=== PATIENT | male | born 1950 | race Caucasian/White ===

== ENCOUNTER → 2018-10-31 | Outpatient (REF) | payer MEDICARE, MEDICAID ==
[2018-10-31 12:06] LABS: BLOOD UREA NITROGEN 17 MG/DL (7-18); CALCIUM LEVEL 9.2 MG/DL (8.8-10.2); CARBON DIOXIDE LEVEL 27 MEQ/L (21-32); CHLORIDE LEVEL 106 MEQ/L (98-107); CHOLESTEROL LEVEL 258 MG/DL (<200); CREATININE FOR GFR 1.08 MG/DL (0.70-1.30); GLOMERULAR FILTRATION RATE > 60.0 (>49); GLUCOSE, FASTING 93 MG/DL (70-100); HDL CHOLESTEROL 40 MG/DL (>40); LDL CHOLESTEROL 190 MG/DL (<100); NON-HDL-C 218 MG/DL; POTASSIUM SERUM 4.6 MEQ/L (3.5-5.1); SODIUM LEVEL 141 MEQ/L (136-145); TRIGLYCERIDES LEVEL 142 MG/DL (<150)
[2018-10-31 12:49] LABS: HEMOGLOBIN A1c 5.8 %
== END ==
LOC: M SFHCPLAZ 09:18
PROVIDERS: ATTEND Family Medicine
DX: E78.5 Hyperlipidemia, unspecified (principal); Z13.1 Encounter for screening for diabetes mellitus; M15.0 Primary generalized (osteo)arthritis; Z12.5 Encounter for screening for malignant neoplasm of prostate; Z12.11 Encounter for screening for malignant neoplasm of colon
CPT/HCPCS: 36415; 80048; 80061; 83036; G0103; G0463

== ENCOUNTER → 2019-03-22 | Outpatient (REF) | payer MEDICARE, MEDICAID ==
[2019-03-22 10:18] LABS: HEMOGLOBIN A1c 5.8 %
[2019-03-22 10:34] LABS: BLOOD UREA NITROGEN 14 MG/DL (7-18); CALCIUM LEVEL 9.3 MG/DL (8.8-10.2); CARBON DIOXIDE LEVEL 27 MEQ/L (21-32); CHLORIDE LEVEL 108 MEQ/L (98-107); CHOLESTEROL LEVEL 170 MG/DL (<200); CHOLESTEROL RISK RATIO 4.594 (<5); CREATININE FOR GFR 0.99 MG/DL (0.70-1.30); GLOMERULAR FILTRATION RATE > 60.0 (>49); GLUCOSE, FASTING 90 MG/DL (70-100); HDL CHOLESTEROL 37 MG/DL (>40); LDL CHOLESTEROL 103 MG/DL (<100); NON-HDL-C 133 MG/DL; POTASSIUM SERUM 4.4 MEQ/L (3.5-5.1); SODIUM LEVEL 141 MEQ/L (136-145); TRIGLYCERIDES LEVEL 148 MG/DL (<150)
== END ==
LOC: M SFHCPLAZ 08:14
PROVIDERS: ATTEND Family Medicine
DX: Z13.1 Encounter for screening for diabetes mellitus (principal); Z12.11 Encounter for screening for malignant neoplasm of colon; E78.5 Hyperlipidemia, unspecified

== ENCOUNTER → 2019-03-27 | Outpatient (CLI) | payer MEDICARE, MEDICAID ==
--- NOTE | 2019-03-27 10:20 | REP ---
ABDOMINAL AORTIC SONOGRAPHY: HISTORY: Screening for abdominal aortic aneurysm. FINDINGS: Retroperitoneal scanning shows a normal caliber aorta. This tapers from 2.7 x 2.1 cm AP x transverse dimension proximally to 1.1 x 1.5 cm distally. No aneurysm is seen. The right and left common iliac arteries are normal measuring 0.9 and 0.8 cm in AP dimension respectively. No periaortic disease is appreciated. IMPRESSION: Normal abdominal aortic sonography. No evidence of aneurysm seen. Electronically Signed by Kashif Gandhi MD 03/27/2019 11:13 A
== END ==
LOC: M RAD 07:20
PROVIDERS: ATTEND Family Medicine
DX: Z13.6 Encounter for screening for cardiovascular disorders (principal)

== ENCOUNTER → 2020-05-12 | Outpatient (REF) | payer MEDICARE ==
[2020-06-08 12:17] LABS: BASO # 0.1 10^3/uL (0.0-0.2); EOS # 0.4 10^3/uL (0.0-0.5); EOS % 4.2 % (0.0-3.0); HEMATOCRIT 48.9 % (42.0-52.0); HEMOGLOBIN 16.3 g/dl (13.5-17.5); LYMPH # 2.2 10^3/uL (1.5-5.0); LYMPH % 21.4 % (24.0-44.0); MEAN CORPUSCULAR HEMOGLOBIN 31.2 pg (27.0-33.0); MEAN CORPUSCULAR HGB CONC 33.3 g/dl (32.0-36.5); MEAN CORPUSCULAR VOLUME 93.5 fl (80.0-96.0); MONO % 9.8 % (0.0-5.0); NEUTROPHILS # 6.4 10^3/uL (1.5-8.5); NEUTROPHILS % 63.2 % (36.0-66.0); PLATELET COUNT, AUTOMATED 363 10^3/uL (150-450); RED BLOOD COUNT 5.23 10^6/uL (4.30-6.10); WHITE BLOOD COUNT 10.1 10^3/uL (4.0-10.0)
[2020-06-24 11:00] LABS: ALBUMIN 4.4 GM/DL (3.2-5.2); ALT/SGPT 34 U/L (12-78); BILIRUBIN,TOTAL 0.4 MG/DL (0.2-1.0); BLOOD UREA NITROGEN 10 MG/DL (7-18); CALCIUM LEVEL 9.9 MG/DL (8.8-10.2); CARBON DIOXIDE LEVEL 28 MEQ/L (21-32); CHLORIDE LEVEL 106 MEQ/L (98-107); CHOLESTEROL LEVEL 234 MG/DL (<200); FREE T4 0.96 NG/DL (0.76-1.46); GLOMERULAR FILTRATION RATE > 60.0 (>49); GLUCOSE, FASTING 97 MG/DL (70-100); HDL CHOLESTEROL 36 MG/DL (>40); LDL CHOLESTEROL 154 MG/DL (<100); NON-HDL-C 198 MG/DL; POTASSIUM SERUM 4.4 MEQ/L (3.5-5.1); SODIUM LEVEL 140 MEQ/L (136-145); TOTAL PROTEIN 7.8 GM/DL (6.4-8.2); TRIGLYCERIDES LEVEL 218 MG/DL (<150)
== END ==
LOC: M SFHCPLAZ 07:53
PROVIDERS: ATTEND Family Medicine
DX: E78.5 Hyperlipidemia, unspecified (principal); R73.01 Impaired fasting glucose; I10 Essential (primary) hypertension; F17.200 Nicotine dependence, unspecified, uncomplicated; Z12.5 Encounter for screening for malignant neoplasm of prostate
CPT/HCPCS: 36415; 80053; 80061; 83525; 84439; 84443; 85025; 86677; G0103; G0463

== ENCOUNTER → 2020-05-26 | Outpatient (REF) | payer MEDICARE, MEDICAID ==
[2020-07-06 15:16] LABS: ALBUMIN 4.78 GM/DL (3.29-5.55); ALBUMIN % 61.3 % (55.8-66.1); ALPHA-1-GLOBULIN % 3.6 % (2.9-4.9); ALPHA-1-GLOBULINS 0.28 GM/DL (0.17-0.41); ALPHA-2-GLOBULINS 0.84 GM/DL (0.42-0.99); ALPHA-2-GLOBULINS % 10.8 % (7.1-11.8); BETA-1-GLOBULINS 0.45 GM/DL (0.28-0.60); BETA-1-GLOBULINS % 5.8 % (4.7-7.2); BETA-2-GLOBULINS 0.46 GM/DL (0.19-0.55); BETA-2-GLOBULINS % 5.9 % (3.2-6.5); GAMMA GLOBULIN % 12.6 % (11.1-18.8); GAMMA GLOBULINS 0.98 GM/DL (0.65-1.58)
[2020-07-07 07:56] LABS: TOTAL PROTEIN 7.8 GM/DL (6.4-8.2)
[2020-07-14 11:07] LABS: BASO # 0.1 10^3/uL (0.0-0.2); BASO % 1.8 % (0.0-1.0); EOS # 0.5 10^3/uL (0.0-0.5); EOS % 5.7 % (0.0-3.0); HEMATOCRIT 47.8 % (42.0-52.0); HEMOGLOBIN 16.1 g/dl (13.5-17.5); LYMPH # 2.3 10^3/uL (1.5-5.0); LYMPH % 28.3 % (24.0-44.0); MEAN CORPUSCULAR HGB CONC 33.7 g/dl (32.0-36.5); MEAN CORPUSCULAR VOLUME 92.1 fl (80.0-96.0); MONO # 0.8 10^3/uL (0.0-0.8); MONO % 10.1 % (0.0-5.0); NEUTROPHILS # 4.3 10^3/uL (1.5-8.5); NEUTROPHILS % 53.7 % (36.0-66.0); PLATELET COUNT, AUTOMATED 350 10^3/uL (150-450); RED BLOOD COUNT 5.19 10^6/uL (4.30-6.10)
[2020-08-04 12:52] LABS: THYROGLOBULIN ANTIBODY 23.9 U/ML (<60.0)
[2020-08-04 12:56] LABS: BLOOD UREA NITROGEN 15 MG/DL (7-18); FREE T4 0.88 NG/DL (0.76-1.46); GLUCOSE, FASTING 96 MG/DL (70-100)
[2020-08-04 12:57] LABS: ALBUMIN 4.1 GM/DL (3.2-5.2); CALCIUM LEVEL 9.8 MG/DL (8.8-10.2); CARBON DIOXIDE LEVEL 30 mmol/L (20-29); CHLORIDE LEVEL 108 MEQ/L (98-107); CREATININE FOR GFR 1.17 MG/DL (0.70-1.30); GLOMERULAR FILTRATION RATE > 60.0 (>49); PHOSPHORUS LEVEL 4.1 MG/DL (2.5-4.9); POTASSIUM SERUM 5.2 MEQ/L (3.5-5.1); SODIUM LEVEL 139 MEQ/L (136-145)
[2020-08-04 12:58] LABS: C REACTIVE PROTEIN QUANTITATIV < 0.30 MG/DL (0.00-0.30); FERRITIN 426 NG/ML (26-388); TOTAL 25(OH) VITAMIN D 34.9 NG/ML (30.0-100.0)
[2020-08-04 13:01] LABS: PTH INTACT 71.8 PG/ML (18.5-88.0)
[2020-08-04 13:02] LABS: HEMOGLOBIN A1c 5.5 %
== END ==
LOC: M SFHCPLAZ 11:54
PROVIDERS: ATTEND Family Medicine
DX: E03.9 Hypothyroidism, unspecified (principal); R73.01 Impaired fasting glucose; Z79.899 Other long term (current) drug therapy

== ENCOUNTER → 2020-06-03 | Outpatient (CLI) | payer MEDICAID, MEDICARE ==
--- NOTE | 2020-06-10 18:39 | REP ---
URINARY TRACT SONOGRAPHY HISTORY: Chronic kidney disease stage III. FINDINGS: Scanning at the level of the urinary bladder shows no abnormality. Visualized bladder beauchamp are smooth. Renal cortical echogenicity pattern is normal and contours are smooth bilaterally. There is no evidence of hydronephrosis on either side. No cyst or mass is seen. No calculus is identified. The right kidney measures 10.6 x 5.8 x 5.7 cm. The left renal dimensions are 11.2 x 4.7 x 4.8 cm. IMPRESSION: Morphologically normal urinary tract sonography. [facility]
== END ==
LOC: M RAD 13:51
PROVIDERS: ATTEND Family Medicine
DX: N18.3 Chronic kidney disease, stage 3 (moderate) (principal)

== ENCOUNTER → 2020-06-16 | Outpatient (REF) | payer MEDICARE, MEDICAID ==
[2020-06-16 13:52] LABS: ALT/SGPT 39 U/L (12-78); BILIRUBIN,DIRECT 0.1 MG/DL (0.0-0.2); BILIRUBIN,TOTAL 0.6 MG/DL (0.2-1.0); BLOOD UREA NITROGEN 18 MG/DL (7-18); CALCIUM LEVEL 9.5 MG/DL (8.8-10.2); CARBON DIOXIDE LEVEL 27 MEQ/L (21-32); CHLORIDE LEVEL 107 MEQ/L (98-107); CPK CREATINE PHOSPHOKINASE 55 U/L (39-308); CREATININE FOR GFR 1.15 MG/DL (0.70-1.30); FREE T4 0.96 NG/DL (0.76-1.46); GLOMERULAR FILTRATION RATE > 60.0 (>49); GLUCOSE, FASTING 104 MG/DL (70-100); PHOSPHORUS LEVEL 3.4 MG/DL (2.5-4.9); POTASSIUM SERUM 4.5 MEQ/L (3.5-5.1); SODIUM LEVEL 139 MEQ/L (136-145); TOTAL PROTEIN 7.5 GM/DL (6.4-8.2)
== END ==
LOC: M PLALAB 11:51
PROVIDERS: ATTEND Family Medicine
DX: R73.01 Impaired fasting glucose (principal); E78.5 Hyperlipidemia, unspecified; E03.9 Hypothyroidism, unspecified

== ENCOUNTER → 2020-06-17 | Outpatient (CLI) | payer MEDICAID, MEDICARE, OTHER ==
--- NOTE | 2020-07-07 14:08 | REP ---
LEFT SHOULDER RADIOGRAPH SERIES CLINICAL: Left shoulder pain, impingement. TECHNIQUE: Internal rotation, external rotation, and Y view of the left shoulder. FINDINGS: Acromioclavicular and glenohumeral joints are intact and normal. No arthritic changes are appreciated. The subacromial space measures approximately 8.8 mm. No periarticular calcifications or loose bodies are identified. IMPRESSION: Subacromial space measuring 8.8 mm. Otherwise, normal left shoulder radiographs. [facility]
== END ==
LOC: M RAD 14:23
PROVIDERS: ATTEND Family Medicine
DX: M75.42 Impingement syndrome of left shoulder (principal)

== ENCOUNTER → 2020-09-16 | Outpatient (REF) | payer MEDICARE, MEDICAID ==
[2020-09-16 13:46] LABS: BASO # 0.1 10^3/uL (0.0-0.2); BASO % 1.6 % (0.0-1.0); EOS # 0.4 10^3/uL (0.0-0.5); EOS % 6.3 % (0.0-3.0); HEMATOCRIT 45.4 % (42.0-52.0); HEMOGLOBIN 15.2 g/dl (13.5-17.5); LYMPH % 29.6 % (24.0-44.0); MEAN CORPUSCULAR HEMOGLOBIN 30.8 pg (27.0-33.0); MEAN CORPUSCULAR HGB CONC 33.5 g/dl (32.0-36.5); MEAN CORPUSCULAR VOLUME 92.1 fl (80.0-96.0); MONO # 0.8 10^3/uL (0.0-0.8); NEUTROPHILS # 3.4 10^3/uL (1.5-8.5); NEUTROPHILS % 50.1 % (36.0-66.0); PLATELET COUNT, AUTOMATED 293 10^3/uL (150-450); RED BLOOD COUNT 4.93 10^6/uL (4.30-6.10); WHITE BLOOD COUNT 6.9 10^3/uL (4.0-10.0)
[2020-09-16 14:17] LABS: ALBUMIN 3.9 GM/DL (3.2-5.2); BILIRUBIN,TOTAL 0.7 MG/DL (0.2-1.0); C REACTIVE PROTEIN QUANTITATIV 0.55 MG/DL (0.00-0.30); CALCIUM LEVEL 9.3 MG/DL (8.8-10.2); CHOLESTEROL RISK RATIO 4.972 (<5); CREATININE FOR GFR 1.3 MG/DL (0.70-1.30); FREE T4 1.18 NG/DL (0.76-1.46); GLOMERULAR FILTRATION RATE 58.4 (>49); POTASSIUM SERUM 4.4 MEQ/L (3.5-5.1); THYROID STIMULATING HORMONE 3.34 uIU/ML (0.358-3.740); TOTAL PROTEIN 6.9 GM/DL (6.4-8.2)
[2020-09-17 12:08] LABS: H PYLORI SERUM QUANT IgG ABY 0.3 (0.00-0.79); INSULIN LEVEL 13.5 uIU/mL (2.6-24.9)
== END ==
LOC: M SFHCPLAZ 08:29
PROVIDERS: ATTEND Family Medicine
DX: E03.9 Hypothyroidism, unspecified (principal); R73.01 Impaired fasting glucose; E78.2 Mixed hyperlipidemia; M47.812 Spondylosis without myelopathy or radiculopathy, cervical region; N18.31 Chronic kidney disease, stage 3a

== ENCOUNTER → 2021-02-12 | Outpatient (REF) | payer OTHER, MEDICAID ==
[2021-02-12 11:12] LABS: APPEARANCE, URINE CLEAR (CLEAR); BACTERIA, URINE AUTO NEGATIVE (NEGATIVE); BILIRUBIN, URINE AUTO NEGATIVE (NEGATIVE); BLOOD, URINE BLOOD NEGATIVE (NEGATIVE); COLOR, URINE YELLOW (YELLOW); GLUCOSE, URINE (UA) AUTO NEGATIVE (NEGATIVE); KETONE, URINE AUTO NEGATIVE (NEGATIVE); LEUKOCYTE ESTERASE, URINE AUTO NEGATIVE (NEGATIVE); MUCUS, URINE LARGE (NEGATIVE); NITRITE, URINE AUTO NEGATIVE (NEGATIVE); PROTEIN, URINE AUTO NEGATIVE (NEGATIVE); RBC, URINE AUTO 0 /HPF (0-3); SPECIFIC GRAVITY URINE AUTO 1.025 (1.002-1.035); SQUAMOUS EPITHELIAL CELL UR AU 0 /HPF (0-6); UROBILINOGEN, URINE AUTO 0.2 mg/dL (0.0-2.0); WBC, URINE AUTO 1 /HPF (0-3)
[2021-02-12 11:52] LABS: MALB URINE SIEMENS 15.1 MG/L; MAU/CREAT RATIO 5.5 MCG/MG (0.0-30.0)
[2021-02-12 12:03] LABS: ALBUMIN 3.9 GM/DL (3.2-5.2); BLOOD UREA NITROGEN 14 MG/DL (7-18); CALCIUM LEVEL 9.4 MG/DL (8.8-10.2); CARBON DIOXIDE LEVEL 28 MEQ/L (21-32); CHLORIDE LEVEL 108 MEQ/L (98-107); CREATININE FOR GFR 1.23 MG/DL (0.70-1.30); FREE T4 1.05 NG/DL (0.76-1.46); GLOMERULAR FILTRATION RATE > 60.0 (>49); GLUCOSE, FASTING 101 MG/DL (70-100); PHOSPHORUS LEVEL 3.1 MG/DL (2.5-4.9); POTASSIUM SERUM 3.9 MEQ/L (3.5-5.1); PTH INTACT 57.5 PG/ML (18.5-88.0); SODIUM LEVEL 140 MEQ/L (136-145); TOTAL 25(OH) VITAMIN D 33.5 NG/ML (30.0-100.0)
[2021-02-12 12:37] LABS: HEMOGLOBIN A1c 5.4 %
== END ==
LOC: M SFHCPLAZ 09:06
PROVIDERS: ATTEND Family Medicine
DX: E55.9 Vitamin D deficiency, unspecified (principal); R73.01 Impaired fasting glucose; N18.31 Chronic kidney disease, stage 3a; E03.9 Hypothyroidism, unspecified; Z12.5 Encounter for screening for malignant neoplasm of prostate
CPT/HCPCS: 36415; 80069; 81001; 82043; 82306; 83036; 83525; 83970; 84439; 84443; G0103; G0463

== ENCOUNTER → 2021-03-15 | Outpatient (CLI) | payer MEDICAID, OTHER ==
[~2021-03-15] MED LIST: ISOVUE-370 76% 100ML VIAL As Ordered ONE
--- NOTE | 2021-03-19 01:48 | REP ---
INDICATION: LUNG NODULE COMPARISON: 09/21/2020, 05/27/2020 TECHNIQUE: Axial contrast enhanced images from the thoracic inlet to the upper abdomen with coronal and sagittal reformations using 75 ml Isovue 370 intravenous contrast material. This CT examination was performed using the following dose reduction techniques: Automated exposure control, adjustment of mA and/or kv according to the patient's size, and use of iterative reconstruction technique. FINDINGS: Lung parker demonstrate mild chronic COPD and interstitial changes. Few nodules primarily at the lingula and left lower lobe remains stable and measure up to roughly 7 mm. No new significant nodule or mass. No acute consolidation. No effusion. No pneumothorax. Mediastinum demonstrates normal/stable vasculature and heart/pericardium. No significant adenopathy noted. Tracheobronchial tree is patent. Thyroid gland is normal by CT evaluation. Surrounding musculoskeletal structures intact and without acute osseous abnormality. IMPRESSION: 1. Chronic stable noncalcified nodules in the left lower lung zone which likely represent sequelae of prior granulomatous disease. Stability revises Lung-RADS to category 2, and annual low-dose CT surveillance may be warranted. 2. No new acute mediastinal or pleuroparenchymal process appreciated. <Electronically signed by Marvel Christiansen > 03/19/21 [id number]
== END ==
LOC: M RAD 13:29
PROVIDERS: ATTEND Family Medicine
DX: R91.8 Other nonspecific abnormal finding of lung field (principal); J44.9 Chronic obstructive pulmonary disease, unspecified; J84.9 Interstitial pulmonary disease, unspecified
CPT/HCPCS: 71260; Q9967

== ENCOUNTER → 2021-06-29 | Outpatient (CLI) | payer OTHER, MEDICAID ==
--- NOTE | 2021-06-29 14:05 | REP ---
INDICATION: SPONDYLOSIS W/O MYELOPATHY OR RADICULOPATHY, CERVICAL REGION. COMPARISON: None. TECHNIQUE: Eight views of the cervical spine are obtained including flexion extension lateral radiographs. FINDINGS: Cervical vertebral body heights are preserved alignment is normal. Flexion extension view show normal alignment. No subluxation or instability is seen. There is discogenic spurring anteriorly with disc space narrowing at C4-5 and to a lesser extent at C5-6. There is mild spurring at C6-7. Swimmer's lateral view shows no additional abnormality. AP view demonstrates osteoarthritic facet hypertrophy mild in degree in the mid cervical spine most pronounced on the left at C3-4. There is mild vascular calcification in the distribution of the left carotid artery bifurcation. Oblique radiographs demonstrate normally aligned facets an intact neural foramina on the right. On the left there is minimal uncovertebral spurring at C4-5 and C6-7. Facets are normally aligned. Open mouth odontoid view is unremarkable. The patient is edentulous. IMPRESSION: Degenerative spondylosis changes as noted above. <Electronically signed by Noman Gandhi > 06/29/21 [id number]
== END ==
LOC: M PLAIMG 13:31
PROVIDERS: ATTEND Nurse Practitioner Family
DX: M47.812 Spondylosis without myelopathy or radiculopathy, cervical region (principal)
CPT/HCPCS: 72052; G0463

== ENCOUNTER → 2021-08-19 | Outpatient (CLI) | payer MEDICAID, OTHER ==
--- NOTE | 2021-08-19 14:51 | REP ---
INDICATION: SPONDYLOSIS W/O MYELOPATHY OR RADICULOPATHY, THORACIC REGION. COMPARISON: None. TECHNIQUE: AP and lateral FINDINGS: Mild to moderate midthoracic marginal osteophytosis is seen. There is anterior lipping and anterior disc space narrowing at every level. Vertebral body height and alignment is within normal limits. The pedicles are intact bilaterally. IMPRESSION: Chronic changes as described above. <Electronically signed by Mark Jackson > 08/19/21 [id number]
[2021-08-19 17:22] LABS: BASO # 0.1 10^3/uL (0.0-0.2); BASO % 1.3 % (0.0-1.0); EOS # 0.2 10^3/uL (0.0-0.5); EOS % 2.7 % (0.0-3.0); HEMATOCRIT 44.9 % (42.0-52.0); LYMPH # 2.2 10^3/uL (1.5-5.0); MEAN CORPUSCULAR HEMOGLOBIN 30.7 pg (27.0-33.0); MEAN CORPUSCULAR HGB CONC 33.4 g/dl (32.0-36.5); MEAN CORPUSCULAR VOLUME 91.8 fl (80.0-96.0); MONO # 0.8 10^3/uL (0.0-0.8); MONO % 10.9 % (2.0-8.0); NEUTROPHILS # 4.3 10^3/uL (1.5-8.5); NEUTROPHILS % 55.8 % (36.0-66.0); PLATELET COUNT, AUTOMATED 345 10^3/uL (150-450); RED BLOOD COUNT 4.89 10^6/uL (4.30-6.10); WHITE BLOOD COUNT 7.7 10^3/uL (4.0-10.0)
[2021-08-19 17:43] LABS: ALBUMIN 3.7 GM/DL (3.2-5.2); ALT/SGPT 24 U/L (12-78); BILIRUBIN,TOTAL 0.5 MG/DL (0.2-1.0); BLOOD UREA NITROGEN 12 MG/DL (7-18); CALCIUM LEVEL 9.4 MG/DL (8.8-10.2); CARBON DIOXIDE LEVEL 25 MEQ/L (21-32); CHLORIDE LEVEL 106 MEQ/L (98-107); CREATININE FOR GFR 1.13 MG/DL (0.70-1.30); FERRITIN 307 NG/ML (26-388); FREE T4 0.96 NG/DL (0.76-1.46); GLOMERULAR FILTRATION RATE > 60.0 (>49); GLUCOSE, FASTING 94 MG/DL (70-100); MAGNESIUM LEVEL 2.1 MG/DL (1.8-2.4); NT-PRO BNP 65 PG/ML (<125); POTASSIUM SERUM 4.6 MEQ/L (3.5-5.1); SODIUM LEVEL 139 MEQ/L (136-145); TOTAL PROTEIN 7.2 GM/DL (6.4-8.2)
[2021-08-19 19:44] LABS: HEMOGLOBIN A1c 5.5 %
== END ==
LOC: M PLAIMG 12:20
PROVIDERS: ATTEND Family Medicine
DX: M47.814 Spondylosis without myelopathy or radiculopathy, thoracic region (principal); R73.01 Impaired fasting glucose; I10 Essential (primary) hypertension; E03.9 Hypothyroidism, unspecified
CPT/HCPCS: 36415; 72072; 80053; 82728; 83036; 83735; 83880; 84439; 84443; 85025; G0463

== ENCOUNTER → 2022-03-15 | Outpatient (CLI) | payer OTHER, MEDICAID ==
[2022-03-15 14:03] LABS: ALBUMIN 3.9 GM/DL (3.2-5.2); ALT/SGPT 31 U/L (12-78); BILIRUBIN,TOTAL 0.5 MG/DL (0.2-1.0); BLOOD UREA NITROGEN 11 MG/DL (7-18); CARBON DIOXIDE LEVEL 26 MEQ/L (21-32); CHLORIDE LEVEL 109 MEQ/L (98-107); CHOLESTEROL LEVEL 189 MG/DL (<200); CREATININE FOR GFR 1.41 MG/DL (0.70-1.30); FREE T4 0.82 NG/DL (0.76-1.46); GLOMERULAR FILTRATION RATE 53.1 (>49); GLUCOSE, FASTING 88 MG/DL (70-100); HDL CHOLESTEROL 42 MG/DL (>40); LDL CHOLESTEROL 116 MG/DL (<100); NON-HDL-C 147 MG/DL; POTASSIUM SERUM 4.3 MEQ/L (3.5-5.1); SODIUM LEVEL 140 MEQ/L (136-145); TRIGLYCERIDES LEVEL 153 MG/DL (<150)
[2022-03-15 14:11] LABS: HEMOGLOBIN A1c 5.4 %
[2022-03-17 17:07] LABS: APOLIPOPROTEIN A-1 142 mg/dL (101-178); APOLIPOPROTEIN B 126 mg/dL (<90); APOLIPOPROTEIN B/A-1 RATIO 0.9 ratio (0.0-0.7); H PYLORI SERUM QUANT IgG ABY 0.12 (0.00-0.79)
== END ==
LOC: M PLALAB 10:05
PROVIDERS: ATTEND Family Medicine
DX: E78.2 Mixed hyperlipidemia (principal); M47.814 Spondylosis without myelopathy or radiculopathy, thoracic region; Z12.5 Encounter for screening for malignant neoplasm of prostate; Z79.899 Other long term (current) drug therapy

== ENCOUNTER → 2022-04-01 | Outpatient (CLI) | payer MEDICAID, OTHER ==
[~2022-04-01] MED LIST changes: -ISOVUE-370 76% 100ML VIAL As Ordered ONE; +ISOVUE-370 76% 100ML VIAL ONE
== END ==
LOC: M PLAIMG 08:41
PROVIDERS: ATTEND Family Medicine
DX: R91.8 Other nonspecific abnormal finding of lung field (principal)
CPT/HCPCS: 71260; Q9967

== ENCOUNTER → 2022-08-16 | Outpatient (CLI) | payer MEDICAID, OTHER ==
[2022-08-16 14:36] LABS: ALBUMIN 3.9 GM/DL (3.2-5.2); BILIRUBIN,TOTAL 0.9 MG/DL (0.2-1.0); CHOLESTEROL RISK RATIO 4.809 (<5); CREATININE FOR GFR 1.38 MG/DL (0.70-1.30); FREE T4 0.85 NG/DL (0.76-1.46); GLOMERULAR FILTRATION RATE 54.2 (>42); MAGNESIUM LEVEL 2.1 MG/DL (1.8-2.4); POTASSIUM SERUM 4.7 MEQ/L (3.5-5.1); THYROID STIMULATING HORMONE 2.3 uIU/ML (0.358-3.740); TOTAL PROTEIN 7.2 GM/DL (6.4-8.2)
[2022-08-16 20:05] LABS: HEMOGLOBIN A1c 5.4 %
== END ==
LOC: M PLALAB 10:37
PROVIDERS: ATTEND Family Medicine
DX: R73.01 Impaired fasting glucose (principal); E78.2 Mixed hyperlipidemia; E03.9 Hypothyroidism, unspecified; I10 Essential (primary) hypertension

== ENCOUNTER → 2023-05-18 | Outpatient (REF) | payer OTHER | LOC: M SFHCPLAZ 11:07 | PROVIDERS: ATTEND Family Medicine | DX: R73.01 Impaired fasting glucose (principal); I10 Essential (primary) hypertension; E03.9 Hypothyroidism, unspecified; Z12.5 Encounter for screening for malignant neoplasm of prostate ==

== ENCOUNTER → 2023-05-18 | Outpatient (CLI) | payer OTHER ==
[2023-05-18 14:02] LABS: BASO # 0.1 10^3/uL (0.0-0.2); BASO % 1.2 % (0.0-1.0); EOS # 0.3 10^3/uL (0.0-0.5); EOS % 3.4 % (0.0-3.0); HEMATOCRIT 45.5 % (42.0-52.0); HEMOGLOBIN 15.3 g/dl (13.5-17.5); LYMPH # 2.4 10^3/uL (1.5-5.0); LYMPH % 32.1 % (24.0-44.0); MEAN CORPUSCULAR HEMOGLOBIN 30.4 pg (27.0-33.0); MEAN CORPUSCULAR HGB CONC 33.6 g/dl (32.0-36.5); MEAN CORPUSCULAR VOLUME 90.5 fl (80.0-96.0); MONO % 12.7 % (2.0-8.0); NEUTROPHILS # 3.8 10^3/uL (1.5-8.5); NEUTROPHILS % 50.3 % (36.0-66.0); PLATELET COUNT, AUTOMATED 324 10^3/uL (150-450); RED BLOOD COUNT 5.03 10^6/uL (4.30-6.10); WHITE BLOOD COUNT 7.6 10^3/uL (4.0-10.0)
[2023-05-18 14:15] LABS: HEMOGLOBIN A1c 5.7 % (4.0-6.0)
[2023-05-18 14:36] LABS: ALKALINE PHOSPHATASE 130 U/L (46-116); ALT/SGPT 15 U/L (7.0-40); AST/SGOT 10 U/L (<34); BILIRUBIN,TOTAL 0.7 MG/DL (0.3-1.2); BLOOD UREA NITROGEN 12 MG/DL (9-23); CALCIUM LEVEL 9.6 MG/DL (8.3-10.6); CARBON DIOXIDE LEVEL 27 MMOL/L (20-31); CHLORIDE LEVEL 105 MMOL/L (98-107); CHOLESTEROL LEVEL 166 MG/DL (<200); CHOLESTEROL RISK RATIO 4.79 (<5); CREATININE FOR GFR 1.09 MG/DL (0.70-1.30); GLOMERULAR FILTRATION RATE > 60.0 (>42); GLUCOSE, FASTING 92 MG/DL (74-106); HDL CHOLESTEROL 34.6 MG/DL (>40); LDL CHOLESTEROL 99.6 MG/DL (<100); NON-HDL-C 131.4 MG/DL; POTASSIUM SERUM 4.1 MMOL/L (3.5-5.1); SODIUM LEVEL 139 MMOL/L (136-145); TOTAL PROTEIN 6.9 G/DL (5.7-8.2); TRIGLYCERIDES LEVEL 159 MG/DL (<150)
[2023-05-18 14:37] LABS: FREE T4 0.88 NG/DL (0.89-1.76); THYROID STIMULATING HORMONE 5.389 uIU/ML (0.55-4.78)
== END ==
LOC: M PLALAB 11:23
PROVIDERS: ATTEND Family Medicine
DX: R73.01 Impaired fasting glucose (principal); I10 Essential (primary) hypertension; E03.9 Hypothyroidism, unspecified; Z12.5 Encounter for screening for malignant neoplasm of prostate

== ENCOUNTER → 2023-06-19 | Outpatient (CLI) | payer OTHER ==
[~2023-06-19] MED LIST changes: +ISOVUE-370 76% 100ML VIAL As Ordered ONE; -ISOVUE-370 76% 100ML VIAL ONE
== END ==
LOC: M RAD 14:06
PROVIDERS: ATTEND Family Medicine
DX: R91.8 Other nonspecific abnormal finding of lung field (principal); J43.2 Centrilobular emphysema
CPT/HCPCS: 71260; Q9967

== ENCOUNTER → 2023-12-12 | Outpatient (CLI) | payer OTHER ==
[2023-12-12 15:04] LABS: FREE T4 1.04 NG/DL (0.89-1.76)
[2023-12-12 15:05] LABS: THYROID STIMULATING HORMONE 7.373 uIU/ML (0.55-4.78)
[2023-12-12 15:07] LABS: ALBUMIN 3.9 G/DL (3.2-5.2); ALKALINE PHOSPHATASE 115 U/L (46-116); ALT/SGPT 20 U/L (7.0-40); AST/SGOT 16 U/L (<34); BILIRUBIN,TOTAL 0.5 MG/DL (0.3-1.2); BLOOD UREA NITROGEN 15 MG/DL (9-23); CALCIUM LEVEL 8.7 MG/DL (8.3-10.6); CARBON DIOXIDE LEVEL 27 MMOL/L (20-31); CHLORIDE LEVEL 107 MMOL/L (98-107); GLOMERULAR FILTRATION RATE > 60.0 (>42); GLUCOSE, FASTING 95 MG/DL (74-106); POTASSIUM SERUM 4.6 MMOL/L (3.5-5.1); SODIUM LEVEL 138 MMOL/L (136-145); TOTAL PROTEIN 6.8 G/DL (5.7-8.2)
== END ==
LOC: M PLALAB 10:00
PROVIDERS: ATTEND Family Medicine
DX: E55.9 Vitamin D deficiency, unspecified (principal); R73.01 Impaired fasting glucose; E03.9 Hypothyroidism, unspecified

== ENCOUNTER → 2023-12-12 | Outpatient (REF) | payer OTHER | LOC: M SFHCPLAZ 15:47 | PROVIDERS: ATTEND Family Medicine | DX: E03.9 Hypothyroidism, unspecified (principal); R73.01 Impaired fasting glucose; E55.9 Vitamin D deficiency, unspecified ==

== ENCOUNTER → 2024-07-25 | Outpatient (CLI) | payer OTHER | LOC: M PLALAB 07-24 15:02 | DX: Z11.1 Encounter for screening for respiratory tuberculosis (principal) ==

== ENCOUNTER → 2024-08-12 | Outpatient (CLI) | payer OTHER ==
[2024-08-12 14:45] LABS: ALBUMIN 3.9 G/DL (3.2-5.2); ALKALINE PHOSPHATASE 128 U/L (40-129); ALT/SGPT 19 U/L (7.0-40); AST/SGOT < 8 U/L (<34); BILIRUBIN,TOTAL 0.5 MG/DL (0.3-1.2); BLOOD UREA NITROGEN 14 MG/DL (9-23); CALCIUM LEVEL 10.2 MG/DL (8.3-10.6); CARBON DIOXIDE LEVEL 28 MMOL/L (20-31); CHLORIDE LEVEL 107 MMOL/L (98-107); CREATININE FOR GFR 1.03 MG/DL (0.70-1.30); GLOMERULAR FILTRATION RATE > 60.0 (>42); GLUCOSE, FASTING 79 MG/DL (74-106); POTASSIUM SERUM 4.4 MMOL/L (3.5-5.1); PTH INTACT 49.2 PG/ML (18.5-88.0); SODIUM LEVEL 141 MMOL/L (136-145); TOTAL PROTEIN 7.1 G/DL (5.7-8.2)
[2024-08-12 14:49] LABS: FREE T4 1.06 NG/DL (0.89-1.76); THYROID STIMULATING HORMONE 4.003 uIU/ML (0.55-4.78)
[2024-08-12 14:50] LABS: TOTAL 25(OH) VITAMIN D 16.2 NG/ML (20.0-100.0)
== END ==
LOC: M PLALAB 11:43
PROVIDERS: ATTEND Family Medicine
DX: R73.01 Impaired fasting glucose (principal); E03.9 Hypothyroidism, unspecified; E55.9 Vitamin D deficiency, unspecified

== ENCOUNTER → 2024-12-11 | Outpatient (CLI) | payer OTHER | LOC: M WUC 12:59 | PROVIDERS: ATTEND Physician Assistant | DX: R05.9 Cough, unspecified (principal); R06.2 Wheezing; R91.8 Other nonspecific abnormal finding of lung field ==

== ENCOUNTER → 2025-01-31 | Outpatient (CLI) | payer OTHER ==
[2025-01-31 14:59] LABS: BASO # 0.1 10^3/uL (0.0-0.2); BASO % 1.3 % (0.0-1.0); EOS # 0.4 10^3/uL (0.0-0.5); EOS % 5.1 % (0.0-3.0); HEMATOCRIT 43.5 % (42.0-52.0); HEMOGLOBIN 14.8 g/dl (13.5-17.5); LYMPH # 2.6 10^3/uL (1.5-5.0); LYMPH % 29.9 % (24.0-44.0); MEAN CORPUSCULAR HEMOGLOBIN 31.7 pg (27.0-33.0); MEAN CORPUSCULAR VOLUME 93.1 fl (80.0-96.0); MONO # 1.1 10^3/uL (0.0-0.8); MONO % 12.7 % (2.0-8.0); NEUTROPHILS # 4.4 10^3/uL (1.5-8.5); NEUTROPHILS % 50.8 % (36.0-66.0); PLATELET COUNT, AUTOMATED 322 10^3/uL (150-450); RED BLOOD COUNT 4.67 10^6/uL (4.30-6.10); WHITE BLOOD COUNT 8.7 10^3/uL (4.0-10.0)
[2025-01-31 15:12] LABS: PSA SCREENING 2.52 NG/ML (< 4.00)
[2025-01-31 15:15] LABS: FERRITIN 601.4 NG/ML (10.5-307.3)
[2025-01-31 15:16] LABS: ALBUMIN 3.8 G/DL (3.2-5.2); BILIRUBIN,TOTAL 0.7 MG/DL (0.3-1.2); CALCIUM LEVEL 9.5 MG/DL (8.3-10.6); CHOLESTEROL RISK RATIO 5.55 (<5); CREATININE FOR GFR 1.1 MG/DL (0.70-1.30); GLOMERULAR FILTRATION RATE 71.3 (>42); HDL CHOLESTEROL 41.8 MG/DL (>40); LDL CHOLESTEROL 158.8 MG/DL (<100); NON-HDL-C 190.2 MG/DL; POTASSIUM SERUM 4.1 MMOL/L (3.5-5.1); THYROID STIMULATING HORMONE 3.707 uIU/ML (0.55-4.78); TOTAL 25(OH) VITAMIN D 23.4 NG/ML (20.0-100.0); TOTAL PROTEIN 6.7 G/DL (5.7-8.2)
[2025-01-31 15:17] LABS: FREE T4 1.08 NG/DL (0.89-1.76)
[2025-01-31 15:28] LABS: HEMOGLOBIN A1c 5.1 % (4.0-6.0)
[2025-01-31 15:32] LABS: PTH INTACT 48.8 PG/ML (18.5-88.0)
[2025-02-02 03:12] LABS: PROTEIN, TOTAL SO 6.9 g/dL (6.1-8.1)
== END ==
LOC: M PLALAB 10:03
PROVIDERS: ATTEND Family Medicine
DX: E78.2 Mixed hyperlipidemia (principal); I10 Essential (primary) hypertension; E55.9 Vitamin D deficiency, unspecified; E03.9 Hypothyroidism, unspecified; R73.01 Impaired fasting glucose; Z12.5 Encounter for screening for malignant neoplasm of prostate; N18.31 Chronic kidney disease, stage 3a
CPT/HCPCS: 36415; 80053; 80061; 82306; 82550; 82728; 83036; 83880; 83970; 84155; 84165; 84439; 84443; 85025; G0103

== ENCOUNTER 2025-02-19 15:34 | Inpatient (IN) | payer OTHER ==
[2025-02-19] VITALS (9 sets, daily range): BP systolic 122–185; BP diastolic 58–89; O2SAT 93–97
[~2025-02-19] VITALS: Ht 170.2 cm; Wt 84.8 kg
[2025-02-19] MEDS ORDERED: ISOVUE-370 76% 100ML VIAL As Ordered ONE (16:25)
[2025-02-19 16:31] LABS: BASO # 0.1 10^3/uL (0.0-0.2); BASO % 1.1 % (0.0-1.0); EOS # 0.3 10^3/uL (0.0-0.5); EOS % 3.9 % (0.0-3.0); HEMATOCRIT 43.3 % (42.0-52.0); HEMOGLOBIN 14.8 g/dl (13.5-17.5); LYMPH # 2.6 10^3/uL (1.5-5.0); MEAN CORPUSCULAR HEMOGLOBIN 31.5 pg (27.0-33.0); MEAN CORPUSCULAR HGB CONC 34.2 g/dl (32.0-36.5); MEAN CORPUSCULAR VOLUME 92.1 fl (80.0-96.0); MONO % 14.1 % (2.0-8.0); NEUTROPHILS # 3.4 10^3/uL (1.5-8.5); NEUTROPHILS % 45.5 % (36.0-66.0); PLATELET COUNT, AUTOMATED 353 10^3/uL (150-450); WHITE BLOOD COUNT 7.4 10^3/uL (4.0-10.0)
[2025-02-19 16:38] LABS: CALCIUM LEVEL 9.7 MG/DL (8.3-10.6); CREATININE FOR GFR 1.07 MG/DL (0.70-1.30); GLOMERULAR FILTRATION RATE 73.7 (>42); POTASSIUM SERUM 4.3 MMOL/L (3.5-5.1)
[2025-02-19 18:06] LABS: ETHYL ALCOHOL (ETHANOL) < 0.003 % (0.000-0.010)
[2025-02-19 18:07] LABS: AMPHETAMINES LEVEL URINE NEGATIVE (NEGATIVE); BARBITURATES URINE NEGATIVE (NEGATIVE); BENZODIAZEPINES URINE NEGATIVE (NEGATIVE); CANNABINOIDS URINE NEGATIVE (NEGATIVE); COCAINE METABOLITE URINE NEGATIVE (NEGATIVE); METHADONE URINE NEGATIVE (NEGATIVE); OPIATES URINE NEGATIVE (NEGATIVE); PHENCYCLIDINE URINE NEGATIVE (NEGATIVE)
[2025-02-19 18:08] LABS: SALICYLATE LEVEL < 3.0 MG/DL (<30)
[2025-02-19] MEDS ORDERED: HEPARIN SOD (PORCINE) 5000UNITS/ML 1ML VIAL/SYRINGE SQ SCH (20:30)
[2025-02-19] MEDS ORDERED: DULO30CA9 PO (21:14)
[2025-02-19] MEDS ORDERED: LEVO75TA4 PO (21:14)
[2025-02-19] MEDS ORDERED: METO1TAB32 PO (21:14)
[2025-02-19] MEDS ORDERED: ATOR80TA59 PO (21:14)
[2025-02-19] MEDS ORDERED: EZET10TA21 PO (21:14)
[2025-02-19] MEDS ORDERED: CELE1CAP4 PO (21:14)
[2025-02-19] MEDS ORDERED: CYCL-707 PO (21:14)
[2025-02-19] MEDS ORDERED: VITA200030 PO (21:14)
[2025-02-19] MEDS ORDERED: HOME MED LIST COMPLETE! XX SCH (21:20)
[2025-02-19] MEDS: ATORVASTATIN 20 MG TAB PO ONE (21:26)
[2025-02-19] MEDS: ASPIRIN 325 MG TAB PO ONE (21:26)
[2025-02-19] MEDS: CLOPIDOGREL 75 MG TAB PO STA (21:26)
[2025-02-19] MEDS: NS (Normal Saline) 0.9% 1,000 ML IV ONE (21:26)
[2025-02-19] MEDS: LABETALOL 100MG/20ML VIAL IV PRN (22:25)
[2025-02-20] VITALS (10 sets, daily range): BP systolic 112–180; BP diastolic 58–81; TEMP 97.3–98.3; O2SAT 92–97
[2025-02-20 04:47] LABS: BASO # 0.1 10^3/uL (0.0-0.2); BASO % 1.3 % (0.0-1.0); EOS # 0.3 10^3/uL (0.0-0.5); EOS % 4.4 % (0.0-3.0); HEMATOCRIT 39.5 % (42.0-52.0); HEMOGLOBIN 13.4 g/dl (13.5-17.5); LYMPH # 2.7 10^3/uL (1.5-5.0); LYMPH % 34.6 % (24.0-44.0); MEAN CORPUSCULAR HEMOGLOBIN 30.9 pg (27.0-33.0); MEAN CORPUSCULAR HGB CONC 33.9 g/dl (32.0-36.5); MEAN CORPUSCULAR VOLUME 91.2 fl (80.0-96.0); MONO % 12.9 % (2.0-8.0); NEUTROPHILS # 3.6 10^3/uL (1.5-8.5); NEUTROPHILS % 46.5 % (36.0-66.0); PLATELET COUNT, AUTOMATED 301 10^3/uL (150-450); RED BLOOD COUNT 4.33 10^6/uL (4.30-6.10); WHITE BLOOD COUNT 7.7 10^3/uL (4.0-10.0)
[2025-02-20 04:58] LABS: INR 0.96; PROTHROMBIN TIME 13.1 SECONDS (12.5-14.5)
[2025-02-20 05:08] LABS: CALCIUM LEVEL 8.7 MG/DL (8.3-10.6); CHOLESTEROL RISK RATIO 6.4 (<5); CREATININE FOR GFR 1.09 MG/DL (0.70-1.30); GLOMERULAR FILTRATION RATE 72.1 (>42); HDL CHOLESTEROL 35.6 MG/DL (>40); NON-HDL-C 192.4 MG/DL; POTASSIUM SERUM 4.2 MMOL/L (3.5-5.1)
[2025-02-20 05:37] LABS: HEMOGLOBIN A1c 5.4 % (4.0-6.0)
[2025-02-20] MEDS: NICOTINE 21MG/24HR 1 EA TRANSDERMAL TD SCH (09:00)
[2025-02-20] MEDS ORDERED: NICOTINE POLACRILEX 2 MG GUM PO PRN (11:00)
[2025-02-20] MEDS: CLOPIDOGREL 75 MG TAB PO SCH (13:02)
[2025-02-20] MEDS: PANTOPRAZOLE 40MG VIAL IV SCH (13:02)
[2025-02-20] MEDS: ASPIRIN 81MG ENTERIC TABLET PO SCH (13:02)
[2025-02-20] MEDS: HEPARIN SOD (PORCINE) 5000UNITS/ML 1ML VIAL/SYRINGE SQ SCH (14:50)
[2025-02-20] MEDS: ATORVASTATIN 20 MG TAB PO SCH (20:33)
[2025-02-21 03:27] VITALS: BP 123/62; TEMP 98.2; O2SAT 96
[2025-02-21 07:22] LABS: HEMATOCRIT 38.6 % (42.0-52.0); HEMOGLOBIN 13.2 g/dl (13.5-17.5); MEAN CORPUSCULAR HEMOGLOBIN 31.4 pg (27.0-33.0); MEAN CORPUSCULAR HGB CONC 34.2 g/dl (32.0-36.5); MEAN CORPUSCULAR VOLUME 91.9 fl (80.0-96.0); PLATELET COUNT, AUTOMATED 289 10^3/uL (150-450); WHITE BLOOD COUNT 6.6 10^3/uL (4.0-10.0)
[2025-02-21 07:51] VITALS: BP 160/71; TEMP 97; O2SAT 97
[2025-02-21 08:01] LABS: ALBUMIN 3.4 G/DL (3.2-5.2); BILIRUBIN,TOTAL 0.6 MG/DL (0.3-1.2); CALCIUM LEVEL 9.1 MG/DL (8.3-10.6); CREATININE FOR GFR 0.99 MG/DL (0.70-1.30); GLOMERULAR FILTRATION RATE 80.9 (>42); POTASSIUM SERUM 3.9 MMOL/L (3.5-5.1); TOTAL PROTEIN 5.9 G/DL (5.7-8.2)
[2025-02-21] MEDS ORDERED: NICO2GUM PO (09:32)
[2025-02-21] MEDS ORDERED: HOLTER MONITOR XX (09:32)
[2025-02-21] MEDS ORDERED: ASPI81TAEC PO (09:32)
[2025-02-21] MEDS ORDERED: NICO21PAT TD (09:32)
[2025-02-21] MEDS ORDERED: CLOP75TA2 PO (09:32)
== END 2025-02-21 13:29 | disposition home or self-care (01) | DRG 66 ==
LOC: EDBD 15:34 → M ED 15:34 → M ED INP 20:30 → M ICU 21:51 → M PCU 02-20 10:09
PROVIDERS: ADMIT Student in an Organized Health Care Education/Training Program; ATTEND Student in an Organized Health Care Education/Training Program
DX: I63.81 Other cerebral infarction due to occlusion or stenosis of small artery (principal); R47.81 Slurred speech; E03.9 Hypothyroidism, unspecified; J44.9 Chronic obstructive pulmonary disease, unspecified; F17.200 Nicotine dependence, unspecified, uncomplicated; E78.5 Hyperlipidemia, unspecified; I10 Essential (primary) hypertension; Z88.8 Allergy status to other drugs, medicaments and biological substances; Z79.899 Other long term (current) drug therapy

== ENCOUNTER → 2025-02-21 | Outpatient (CLI) | payer OTHER ==
[~2025-02-21] MED LIST changes: +ASPI81TAEC PO; +ATOR80TA59 PO; +CELE1CAP4 PO; +CLOP75TA2 PO; +CYCL-707 PO; +DULO30CA9 PO; +EZET10TA21 PO; +HOLTER MONITOR XX; -ISOVUE-370 76% 100ML VIAL As Ordered ONE; +LEVO75TA4 PO; +METO1TAB32 PO; +NICO21PAT TD; +NICO2GUM PO; +VITA200030 PO
== END ==
LOC: M EKG 13:38
PROVIDERS: ATTEND Student in an Organized Health Care Education/Training Program
DX: I63.9 Cerebral infarction, unspecified (principal)